=== PATIENT | female | born 1990 | race African-American/Black ===

== ENCOUNTER 2021-04-25 06:01 | Emergency (ER) | payer OTHER, SELFPAY ==
--- NOTE | ~2021-04-25 | US_ITS ---
EXAMINATION: US OB <= 14 weeks fetus EXAM DATE: 04/25/2021 07:22 INDICATION: Vaginal bleeding, retained products of conception. 1st trimester. TECHNIQUE: Pelvic obstetrical transabdominal sonogram was performed by a technologist. There are mu ltiple grayscale and Doppler images available for interpretation. There are no earlier studies of th is gestation for comparison. FINDINGS: Uterus measures 10.7 x 4.2 x 6.8 cm, and is morphologically normal. Endometrial stripe has mild heterogeneity, measures 12 mm, within normal limits. No definite retained products of conceptio n. There is no free pelvic fluid. Right adnexa: The ovary measures 2.9 x 2.4 x 1.9 cm and is morphologically normal. Ovarian vascular f low confirmed. Left adnexa: The ovary measures 2.7 x 1.9 x 1.9 cm and is morphologically normal. Ovarian vascular fl ow confirmed. Early intrauterine or recent spontaneous are common causes of elevated beta hCG in absence of intrauterine confirmation. Ultrasound can sometimes identify, but never exclud e an ectopic in the setting of positive beta hCG. IMPRESSION: Mildly heterogeneous endometrium with normal thickness, probably decidual reaction but fo llow-up as indicated clinically. Reviewed, dictated and finalized at location A. IMPRESSION: Mildly heterogeneous endometrium with normal thickness, probably de cidual reaction but follow-up as indicated clinically.
--- NOTE | 2021-04-25 06:03 | PC.NURSE ---
Miscarriage 4 weeks ago. c/o vaginal bleeding. went to [facility] last night but took to long.
[2021-04-25 06:09] VITALS: BP 136/85; PULSE 89; RESP 16; TEMP 36.9; O2SAT 99
--- NOTE | 2021-04-25 06:20 | ED.FEMALEGU ---
HPI - Female Genitourinary General Chief complaint: Vaginal Bleeding <Robert Gonzalez MD - Last Filed: 04/25/21 06:50> Stated complaint: miscarriage 4 weeks ago <Robert Gonzalez MD - Last Filed: 04/25/21 06:50> Time Seen by Provider: 04/25/21 06:05 <Robert Gonzalez MD - Last Filed: 04/25/21 06:50> History of Present Illness HPI Narrative: Patient is a 31-year-old female who is a G3, P2 who had a miscarriage of an 8-week on 03/26/2021 that presents ER with vaginal bleeding. Reports she has had daily vaginal bleeding for the last 30 days. She went through 4 pads yesterday. She has ebbing and flowing of her flow. She occasionally patches small clots. Blood yesterday was red. No dizziness or shortness of breath or weakness. She is on any blood thinners. Denies vaginal discharge. Has some mild discomfort with urination. Scheduled follow-up with her OB, Dr. Diamond, in [place] on 05/12/2021. <Robert Gonzalez MD - Last Filed: 04/25/21 06:50> Review of Systems Review of Systems: All systems reviewed & are unremarkable except as noted in HPI and below <Robert Gonzalez MD - Last Filed: 04/25/21 06:50> Constitutional: Constitutional: Denies chills and Denies fatigue <Robert Gonzalez MD - Last Filed: 04/25/21 06:50> Comments: No fevers <Robert Gonzalez MD - Last Filed: 04/25/21 06:50> ENT: Denies nasal congestion and Denies sore throat <Robert Gonzalez MD - Last Filed: 04/25/21 06:50> Gastrointestinal: Gastrointestinal: Denies abdominal pain, Denies nausea and Denies vomiting <Robert Gonzalez MD - Last Filed: 04/25/21 06:50> Genitourinary: Genitourinary: Reports abnormal vaginal bleeding, Reports dysuria, Denies flank pain and Denies vaginal discharge <Robert Gonzalez MD - Last Filed: 04/25/21 06:50> [facility] Past Medical History Medical History: Medical History (Updated 10/31/21 @ 08:05 by Abrahan Bourne MD) Healthy female adult <Robert Gonzalez MD - Last Filed: 04/25/21 06:50> Surgical History Surgical History: Surgical History (Updated 04/25/21 @ 06:22 by Robert Gonzalez MD) No history of previous surgery <Robert Gonzalez MD - Last Filed: 04/25/21 06:50> Social History Social History: Social History (Updated 04/25/21 @ 06:22 by Robert Gonzalez MD) Smoking status: Never smoker <Robert Gonzalez MD - Last Filed: 04/25/21 06:50> Exam Narrative: GENERAL: Well-appearing, well-nourished, and in no acute distress. HEAD: Normocephalic, atraumatic. CHEST: Clear to auscultation. No respiratory distress. HEART: Regular rate and rhythm. Normal peripheral pulses. ABDOMEN: Soft, nontender, nondistended. : Normal external genitalia. Scant blood within the vagina however there is some mucoid material coming from the cervical os which is closed. Cervix nontender nonfriable. EXTREMITIES: Normal range of motion. No edema. SKIN: Warm, dry, no rash. NEURO: Alert and oriented x3. PSYCH: Normal mood and affect. <Robert Gonzalez MD - Last Filed: 04/25/21 06:50> Course Course Emergency Course: Received signout on the patient pending blood work and ultrasound. Work-up returned notable for blood type O positive hCG of 55 and ultrasound showing no retained products and likely decidual reaction. Patient was resting comfortably on reevaluation all results reviewed with patient. Patient's case was discussed with her OB practice Dr. Parker(covering physician) and their practice would be happy to follow-up with the patient this week. Patient instructed to call her OB clinic for repeat evaluation this week. Patient was comfortable with the outpatient plan. There is low clinical concern for retained products low concern for sepsis low concern for significant hemorrhage. <Abrahan Bourne MD - Last Filed: 04/25/21 11:05> Reevaluation(s) Reevaluation #1: Bedside positive. Concern for retained products of conception. Wi
[2021-04-25 06:33] LABS: Basophils Percent Auto 0.6 % (0.2-1.2); Eosinophils Absolute Auto 0.2 K/mm3 (0-0.3); Eosinophils Percent Auto 5.1 % (0-4.4); Hematocrit 35.6 % (37.0-47.0); Hemoglobin 11.5 g/dL (12.0-15.0); Immature Granulocyte Absolute 0.01 K/mm3 (0.00-0.031); Immature Granulocyte Percent A 0.3 % (0-0.5); Lymphocytes Absolute Auto 1.38 K/mm3 (0.9-3.2); Lymphocytes Percent Auto 43.7 % (18.3-44.2); Mean Corpuscular HGB Conc 32.3 g/dl (32-36); Mean Corpuscular Volume 86.6 fl (80-100); Monocytes Absolute Auto 0.3 K/mm3 (0.1-0.6); Monocytes Percent Auto 7.9 % (2.6-8.5); Neutrophils Absolute Auto 1.3 K/mm3 (1.3-6.7); Neutrophils Percent Auto 42.4 % (45.5-73.1); Platelet Count Result 201 k/mm3 (150-375); Red Blood Count 4.11 M/mm3 (4.2-5.4); Red Cell Distribution Width 14.5 % (11.5-14.5); White Blood Count 3.2 K/mm3 (4.5-10.0)
[2021-04-25 06:53] LABS: Anion Gap 10 mmol/L (8-16); Blood Urea Nitrogen 12 mg/dL (7-17); Calcium 9.6 mg/dL (8.4-10.2); Carbon Dioxide 23 mmol/L (22-30); Chloride 107 mmol/L (98-107); Estimated CRCL calculation 94 ml/min; Estimated Glomerular Filt Rate > 60; Glucose 93 mg/dL (65-110); Potassium 4.1 mmol/L (3.4-5.0); Sodium 140 mmol/L (137-145)
[2021-04-25 07:01] LABS: Add Urine Microscopic? YES; Appearance Urine Cloudy (Clear); Bilirubin Urine Negative (Negative); Blood Urine 3+ (Negative); Color Urine Yellow (Yellow); Glucose Urine UA Negative (Negative); Ketones Urine Trace mg/dL (Negative); Leukocyte Esterase Ur 1+ LEU/UL (Negative); Mucus Urine Heavy /lpf; Nitrate Urine Negative (Negative); Protein Urine 2+ mg/dL (Negative); RBC Urine 21-50 /hpf (0-2); Specific Grav Ur 1.029 (1.001-1.035); Squamous Epithelial Cell Urine Many /hpf (Few); Urobilinogen Urine Negative mg/dL (<2.0); WBC Urine 31-50 /hpf
[2021-04-25 07:26] LABS: Beta HCG Quantitative 55.32 mIU/ML
[2021-04-25 07:35] VITALS: BP 136/79; PULSE 81; RESP 17; O2SAT 100
== END 2021-04-25 08:38 | disposition home or self-care (01) ==
PROVIDERS: Emergency Medicine; Emergency Provider Emergency Medicine
DX: N93.9 Abnormal uterine and vaginal bleeding, unspecified (principal)
CPT/HCPCS: 36415; 76801; 80048; 81001; 81025; 84702; 85025; 86850; 86900; 86901; 87086; 87088; 99284